=== PATIENT | male | born 1990 | race Caucasian/White ===

== ENCOUNTER 2023-12-13 11:26 | Emergency (ER) | payer OTHER, BC, SELFPAY ==
--- NOTE | ~2023-12-13 | CT_ITS ---
EXAMINATION: CT HEAD WITHOUT CONTRAST CLINICAL INFORMATION: Struck in forehead by prybar, laceration COMPARISON: None. TECHNIQUE: Contiguous axial imaging was performed from the skull base to vertex without intravenous administration of contrast. Coronal and sagittal reformatted images are performed at the CT scanner. [This CT examination was performed using dose optimization techniques as appropriate, variously including the following: *Automated exposure control *Adjustment of mA and/or kV according to patient size (this includes techniques or standardized protocols for targeted exams where dose is matched to indication/reason for exam; i.e. extremities or head) *Use of iterative reconstruction technique] DLP: 686 mGy-cm. FINDINGS: There is no evidence of acute intracranial hemorrhage or territorial infarction. No abnormal mass-effect or midline shift is seen. Velasquez to white matter differentiation is well preserved. No extra-axial fluid collections are identified. The ventricles are normal in size. There is no abnormal attenuation within the brain parenchyma. There is no osseous abnormality. The mastoid air cells and visualized portions of the paranasal sinuses are well-aerated. CT/CT head/brain wo IV con IMPRESSION: No acute intracranial pathology.
--- NOTE | 2023-12-13 11:28 | ED.HEATRA ---
HPI - Head Injury General Chief complaint: Wound/Laceration Stated complaint: Head lac - work injury Time Seen by Provider: 12/13/23 13:33 Source: patient Mode of arrival: ambulatory Limitations: no limitations History of Present Illness ED Provider: SHYANNE URENA PA-C HPI Narrative: 33 year old male with no significant pmhx presents to the ED today for evaluation of head laceration sustained prior to arrival. Patient states that while at work, a crowbar flew back at him and struck him in the left forehead. Admits to laceration with bleeding controlled. Denies loss of consciousness. Not on anticoagulation. Denies dizziness, headache, vision changes, confusion. He is unsure of last tetanus. Related Data Allergies Allergy/AdvReac Type Severity Reaction Status Date / Time No Known Allergies Allergy Verified 12/13/23 11:32 Review of Systems Review of Systems: Constitutional: No fever, chills, fatigue, night sweats, weight changes ENT/Mouth: No ear pain, hearing loss, nasal congestion, sinus pain, rhinorrhea, sore throat Eyes: No eye pain, swelling, redness, vision changes, discharge Cardio: No chest pain, palpitations, DAVILA, orthopnea, peripheral edema Pulm: No SOB, cough, sputum, wheezing, dyspnea, hemoptysis GI: No nausea, vomiting, hematemesis, abdominal pain, diarrhea, constipation, hematochezia, melena : No irregular bleeding, dysuria, frequency, urgency, hesitancy, hematuria, flank pain, urinary flow changes, urinary incontinence or retention MSK: No back pain, neck pain, joint pain, myalgias Skin: No lesions, rashes, +left forehead laceration Neuro: No weakness, numbness, paresthesias, LOC, dizziness, headache Psych: No anxiety/panic, depression, SI/HI, AH/VH All other systems reviewed and are negative. [facility] Past Medical History Attestation statement: The following information was validated with the patient. Source: old records reviewed and nursing notes reviewed Social History Social History Advance Directives: No Advance Directives Information Provided: Yes Do you have a plan to hurt others: No Plan Physical Exam Vital Signs: Vital Signs: Last Vital Signs Temp 98.6 F 12/13/23 15:47 Pulse 82 12/13/23 15:47 Resp 18 12/13/23 15:47 BP 146/81 H 12/13/23 15:47 Pulse Ox 95 12/13/23 15:47 O2 Del Method Room Air 12/13/23 11:29 BMI result Body Mass Index 21.0 Patient is slightly hypertensive, vitals otherwise WNL Const: General: cooperative, healthy appearing, comfortable and no acute distress Orientation/consciousness: patient oriented x3 Limitations: no limitations HEENT: Head: Yes No palpable skull fracture present, Yes normocephalic and Yes atraumatic Head images: 1. Small 1 cm superficial laceration noted to left forehead. Bleeding controlled. No involvement of deeper structures. No palpable hematoma or skull fracture. General nose exam: Normal external nose present Face and sinus: Yes normal facial exam Eyes: General: appearance normal, both eyes and all related structures Pupils: Equal, round and reactive pupils present EOM: EOMs intact bilaterally Neck: Other: No cervical midline spinous tenderness or step-off deformity. Neck: Yes normal visual inspection and Yes full ROM Resp: Effort & Inspection: normal respiratory effort and able to speak in complete sentences Cardio: Rate: regular rate Rhythm: regular rhythm Back/Spine/Pelvis: Other: No midline spinous tenderness or step off deformity. No paraspinal muscle tenderness. Skin: General skin exam: no rashes or lesions noted Neuro: General: patient oriented x3, gait normal and no focal motor deficits Cranial nerves: Yes Equal, round and reactive pupils present Gait exam (Neuro): Normal gait present Motor exam (neuro): 5/5 motor strength present throughout and Pronator motor function not present Pupils: Normal pupillary reactivity/response: bilateral Extrem: General: Yes normal to inspection Course Course Course Narrative: This is a Rapid Medical Exam performed in triage by Macey Mcwilliams PA-C. Full HPI, ROS and PE to be performed by primary ED provider. 33 year-old M w/no sig PMHx presenting to the ED c/o forehead laceration s/p crowbar hitting head while at work today. Admits to BERRY. denies N/V, lightheadedness. Patient denies having any vaccinations, & is not interested in Tdap today. PE: 1cm laceration/puncture wound to L forehead. no active bleeding. no focal deficits Plan: wound repair Reevaluation(s) Reevaluation #1: 1530-- Laceration repaired with 3 sutures. Bleeding controlled. Patient tolerated well. Advised to return in 3-5 days for removal. Tetanus updated. CT head/brain unremarkable. Patient has remained stable throughout ED visit today. Discussed worrisome signs and symptoms and when to return to the ED. All questions answered at this time. Patient is agreeable with disposition and stable for discharge. Medications Administered Discontinued Medications Generic Name Dose Route Start Last Admin Trade Name Fretrudy PRN Reason Stop Dose Admin Diphtheria/Tetanus/Acell Pertussis 0.5 ml 12/13/23 14:08 12/13/23 14:37 Diphth,Pertus(Acell),Tet Adult 0.5 Ml Syringe IM 12/13/23 14:09 0.5 ml .ONCE ONE Administration Lidocaine HCl 5 ml 12/13/23 13:45 12/13/23 14:26 Lidocaine Hcl 1 % Mpf 5 Ml Vial INFILTRATI 12/13/23 13:46 5 ml ONCE ONE Administration Medical Decision Making Medical Decision Making MDM Narrative: 33 year old male with no significant pmhx presents to the ED today for evaluation of head laceration sustained prior to arrival. Patient is slightly hypertensive, vitals otherwise WNL. He is nontoxic-appearing and in no acute distress. On exam, small 1 cm superficial laceration noted to left forehead. Bleeding controlled. No involvement of deeper structures. No palpable hematoma or skull fracture. AOX3. Exam is nonfocal. Ambulating with steady gait. PERRLA. EOMs intact without entrapment. Differential diagnosis includes laceration, abrasion, concussion. Unlikely skull fracture, ICH. Plan for laceration repair, tetanus update, CT head/brain and re-evaluation. Differential Diagnosis Differential Diagnoses: The differential diagnosis associated with the presentation includes as above. Admission/Observation Not indicated Independent Interpretation I performed an independent interpretation of an: CT Scan Interpretation: CT head/brain without bleed or skull fracture, agree with radiologist's interpretation Radiology Impression Discussion of test interpretation with radiology: I have reviewed the radiologist's reading. Radiologist Impression: EXAMINATION: CT HEAD WITHOUT CONTRAST CLINICAL INFORMATION: Struck in forehead by prybar, laceration COMPARISON: None. TECHNIQUE: Contiguous axial imaging was performed from the skull base to vertex without intravenous administration of contrast. Coronal and sagittal reformatted images are performed at the CT scanner. [This CT examination was performed using dose optimization techniques as appropriate, variously including the following: *Automated exposure control *Adjustment of mA and/or kV according to patient size (this includes techniques or standardized protocols for targeted exams where dose is matched to indication/reason for exam; i.e. extremities or head) *Use of iterative reconstruction technique] DLP: 686 mGy-cm. FINDINGS: There is no evidence of acute intracranial hemorrhage or territorial infarction. No abnormal mass-effect or midline shift is seen. Velasquez to white matter differentiation is well preserved. No extra-axial fluid collections are identified. The ventricles are normal in size. There is no abnormal attenuation within the brain parenchyma. There is no osseous abnormality. The mastoid air cells and visualized portions of the paranasal sinuses are well-aerated. CT/CT head/brain wo IV con IMPRESSION: No acute intracranial pathology. Social Determinants Patient?s care significantly limited by Social Determinants of Health including: Other Social Determinant of Health Procedures Laceration Laceration 1: Site: face Side (If applicable): left Size (cm): 1 Description: linear Depth: simple, single layer Local Anesthetic: lidocaine 1% Amount of anesthesia used (mL): 5 Pre-repair: wound explored, irrigated extensively, deep structures intact and extensive debridement Skin layer closed with: nylon Size (cm): 5-0 Number of sutures: 3 Technique: simple, interrupted Critical Care Time Critical Care Time Critical Care Time: No Discharge Plan Discharge Clinical Impression: Laceration Patient Disposition: Home, Self-Care Instructions: Care For Your Stitches (DC), Laceration (ED), Stitches Removal (ED) Additional Instructions: You were seen in the ED today for forehead laceration. This was repaired with 3 sutures. Please return in 3-5 days for suture removal. Your tetanus was updated today. The CT scan of your head is normal. Return to the ED with new or worsening symptoms. In the case of an emergency call 911. Follow-up with [facility] as this was a work-related injury. [facility]: [phone] Referrals: [facility] [Outside] Stand Alone Forms: Work/School Release Interventions: ED Discharge Assessment Last Done: 12/13/23 15:47 Discharge Date/Time: 12/13/23 15:47 Print Language: Martiniquais
[2023-12-13 11:29] VITALS: BP 142/93; PULSE 70; RESP 18; TEMP 37.1; O2SAT 98; BMI 21.0
[2023-12-13 13:58] VITALS: BP 146/81; PULSE 82; RESP 18; TEMP 37; O2SAT 95
[2023-12-13] MEDS: Lidocaine HCl 1 % MPF 5 ML VIAL INFILTRATI (14:26)
[2023-12-13] MEDS: Diphth,Pertus(ACell),Tet Adult 0.5 ML SYRINGE IM (14:37)
[2023-12-13 15:47] VITALS: BP 146/81; PULSE 82; RESP 18; TEMP 37; O2SAT 95
== END 2023-12-13 15:47 | disposition home or self-care (01) ==
PROVIDERS: Emergency Provider Emergency Medicine Emergency Medical Services
DX: S01.81XA Laceration without foreign body of other part of head, initial encounter (principal); W20.8XXA Other cause of strike by thrown, projected or falling object, initial encounter; Y93.89 Activity, other specified; Y92.59 Other trade areas as the place of occurrence of the external cause; Y99.0 Civilian activity done for income or pay; Z23 Encounter for immunization
CPT/HCPCS: 12051; 70450; 90471; 90715; 99283; 99284